=== PATIENT | female | born 1965 | race Caucasian/White ===

== ENCOUNTER → 2016-10-08 | Outpatient (CLI) | payer OTHER | LOC: FIMAGING 17:10 | PROVIDERS: ATTEND Family Medicine | DX: R05 Cough (principal); Z85.038 Personal history of other malignant neoplasm of large intestine ==

== ENCOUNTER → 2017-03-29 | Outpatient (CLI) | payer OTHER | LOC: FIMAGING 14:08 | PROVIDERS: ATTEND Obstetrics & Gynecology | DX: R22.33 Localized swelling, mass and lump, upper limb, bilateral (principal) | CPT/HCPCS: G0204 ==

== ENCOUNTER → 2018-03-28 | Outpatient (CLI) | payer OTHER | LOC: FIMAGING 13:53 | PROVIDERS: ATTEND Family Medicine | DX: R05 Cough (principal) ==

== ENCOUNTER 2018-04-24 01:46 | Emergency (ER) | payer OTHER ==
[2018-04-24 01:53] VITALS: BP 126/71
[2018-04-24] MEDS ORDERED: NITROFURANTOIN MACROBID 100 MG CAP PO ONE (02:18)
[2018-04-24] MEDS ORDERED: PHENAZOPYRIDINE HCL 200 MG TAB PO ONE (02:18)
--- NOTE | 2018-04-24 02:18 | EDPHY ---
H & P Stated Complaint: UTI SX FOR PAST DAY Time Seen by Provider: 04/24/18 02:10 HPI/ROS: Chief Complaint: Possible UTI HPI: 52-year-old woman presenting with 1 day of urinary urgency frequency and some hematuria. She has a history of UTIs in the past and this feels similar. No vaginal bleeding or discharge. No fevers or chills. No back pain. Some mild lower pelvic abdominal discomfort. ROS: 10 systems were reviewed and were negative except those elements noted in the HPI. PMH: Colon cancer Social History: History of smoking Family History: non-contributory Physical Exam: Gen: Awake, Alert, No Distress HEENT: Nose: no rhinorrhea Eyes: PERRLA, EOMI Mouth: Moist mucosa Neck: Supple, no JVD Chest: nontender, lungs clear to auscultation Heart: S1, S2 normal, no murmur Abd: Soft, non-tender, no guarding Back: no CVA tenderness, no midline tenderness Ext: no edema, non-tender Skin: no rash Neuro: CN II-XII intact, Sensation grossly intact, Strength 5/5 in bilateral upper and lower extremities - Personal History Current Tetanus/Diphtheria Vaccine: Unsure Current Tetanus Diphtheria and Acellular Pertussis (TDAP): Unsure - Medical/Surgical History Hx Asthma: No Hx Chronic Respiratory Disease: No Hx Diabetes: No Hx Cardiac Disease: No Hx Renal Disease: No Hx Cirrhosis: No Hx Alcoholism: No Hx HIV/AIDS: No Hx Splenectomy or Spleen Trauma: No Other PMH: R KNEE INJ, COLON CA. +Cdiff - Social History Smoking Status: Never smoked Constitutional: Initial Vital Signs Temperature (C) 36.6 C 04/24/18 01:51 Heart Rate 70 04/24/18 01:51 Respiratory Rate 18 04/24/18 01:51 Blood Pressure 126/71 H 04/24/18 01:51 O2 Sat (%) 98 04/24/18 01:51 O2 Delivery Mode Room Air Allergies/Adverse Reactions: amoxicillin [Amoxicillin] Allergy (Mild, Verified 04/24/18 01:53) Rash tetracycline Allergy (Mild, Verified 04/24/18 01:53) Rash Home Medications: Medication Instructions Recorded Nitrofurantoin Monohyd/M-Cryst 100 mg PO BID #10 capsule 04/24/18 [Macrobid 100 mg Capsule] Phenazopyridine HCl [Pyridium] 200 mg PO TID #6 tab 04/24/18 Departure - Departure Disposition: Home, Routine, Self-Care Clinical Impression: Urinary tract infection Condition: Good Instructions: Urinary Tract Infection in Women (ED) Additional Instructions: Please take your full course of antibiotics. Take a probiotic or eat yogurt every a while on the antibiotic. Follow up with primary care physician in 4-5 days if symptoms are not improving. Referrals: Nilsa Slaughter MD [Primary Care Provider] - As per Instructions Prescriptions: Nitrofurantoin Monohyd/M-Cryst [Macrobid 100 mg Capsule] 100 mg PO BID #10 capsule Phenazopyridine HCl [Pyridium] 200 mg PO TID #6 tab
== END 2018-04-24 02:28 | disposition home or self-care (01) ==
DX: N39.9 Disorder of urinary system, unspecified (principal)

== ENCOUNTER → 2018-05-11 | Outpatient (CLI) | payer OTHER | LOC: FIMAGING 08:36 | PROVIDERS: ATTEND Family Medicine | DX: Z12.31 Encounter for screening mammogram for malignant neoplasm of breast (principal) ==

== ENCOUNTER → 2018-05-18 | Outpatient (CLI) | payer OTHER | LOC: FIMAGING 10:25 | PROVIDERS: ATTEND Family Medicine | DX: R92.8 Other abnormal and inconclusive findings on diagnostic imaging of breast (principal); N60.02 Solitary cyst of left breast ==

== ENCOUNTER → 2018-11-09 | Outpatient (CLI) | payer OTHER | LOC: FIMAGING 09:04 | PROVIDERS: ATTEND Family Medicine | DX: N60.02 Solitary cyst of left breast (principal); C18.9 Malignant neoplasm of colon, unspecified ==